=== PATIENT | female | born 1980 | race Caucasian/White ===

== ENCOUNTER 2017-12-15 22:02 | Emergency (ER) | payer MEDICAID ==
[~2017-12-15] VITALS: Ht 160 cm; Wt 83.0 kg
[~2017-12-15 22:02] MED LIST: BACI28OI9 TP; CYCL-1 PO; ESCI10TA45 PO; FLO0.4C PO; HYDR-569 PO; IBUP-1986 PO; MECL12.5 PO; METF500T PO; ONDA4TAB12 PO; ONDA4TAB6 PO; ONDA8TAB6 PO; PROM25TA14 PO
[2017-12-15 23:00] LABS: URINE HCG NEGATIVE (NEG)
[2017-12-15 23:16] LABS: ALANINE AMINOTRANSFERASE 19 U/L (12-78); ALBUMIN 3.7 G/DL (3.4-5.0); ALKALINE PHOSPHATASE 94 IU/L (46-116); ANION GAP 10 (8-16); ASPARTATE AMINO TRANSFERASE 14 U/L (10-37); BILIRUBIN,TOTAL 0.2 MG/DL (0.1-1.0); BLOOD UREA NITROGEN 15 MG/DL (7-18); BUN/CREATININE RATIO 15.2 (6.6-38.0); CHLORIDE 104 MMOL/L (99-107); CREATININE 0.99 MG/DL (0.40-0.90); GLUCOSE 215 MG/DL (70-104); POTASSIUM 3.2 MMOL/L (3.5-5.1); SODIUM 139 MMOL/L (135-145); TOTAL CARBON DIOXIDE 25.1 MMOL/L (24-32); TOTAL PROTEIN 7.3 G/DL (6.4-8.2); eGFR 63 ML/MIN
[2017-12-15 23:19] LABS: CLARITY,URINE CLEAR (Clear); COLOR,URINE YELLOW (Yellow); GLUCOSE, URINE NEGATIVE (Neg); KETONES,URINE NEGATIVE (Neg); LEUKOCYTE ESTERASE ,URINE NEGATIVE (Neg); NITRITES, URINE NEGATIVE (Neg); OCCULT BLOOD,URINE LARGE (Neg); PH,URINE 6.5 (4.8-8.0); PROTEIN,URINE TRACE mg/dl (Neg); UROBILINOGEN,URINE 0.2 E.U/dL (0.2-1.0)
[2017-12-15 23:23] LABS: UA COLLECTION TYPE CLN CATCH MIDSTREAM
[2017-12-15 23:23] LABS: BASOPHILS % (AUTO) 0.3 % (0-1); EOSINOPHILS # (AUTO) 0.2 X10'3 (0-0.9); EOSINOPHILS % (AUTO) 2.2 % (0-6); HEMATOCRIT 37.5 % (35.0-45.0); HEMOGLOBIN 12.9 g/dl (12.0-16.0); LYMPHOCYTES # (AUTO) 3.1 X10'3 (1.1-4.8); MEAN CORPUSCULAR HEMOGLOBIN 28.8 PG (27.0-31.0); MEAN CORPUSCULAR HGB CONC 34.3 % (33.0-36.5); MEAN CORPUSCULAR VOLUME 83.9 FL (78-98); MEAN PLATELET VOLUME 7.1 FL (7.4-10.4); MONOCYTES # (AUTO) 0.8 X10'3 (0-0.9); MONOCYTES % (AUTO) 8.6 % (2-12); NEUTROPHILS # (AUTO) 5.5 X10'3 (1.8-7.7); NEUTROPHILS % (AUTO) 56.9 % (42-75); PLATELET COUNT 448 X10'3 (140-440); RED BLOOD COUNT 4.47 X10'6 (4.20-5.60); RED CELL DISTRIBUTION WIDTH 12.7 % (11.5-14.5); WHITE BLOOD COUNT 9.7 X10'3 (4.5-11.0)
[2017-12-15] MEDS ORDERED: normal saline 1000ml 1,000 ML IV ONE (23:25)
[2017-12-15] MEDS ORDERED: ondansetron/PF 4mg/2ml inj IV ONE (23:25)
[2017-12-15] MEDS ORDERED: dicyclomine 10mg/ml 2ml ampule IM ONE (23:30)
[2017-12-15 23:52] LABS: BACTERIA,URINE 2+ /HPF (Neg)
[2017-12-15 23:54] LABS: SQUAMOUS EPITHELIAL CELL,UR FEW /LPF (FEW); WBC,URINE NONE SEEN /HPF (0-4)
[2017-12-16 00:06] LABS: CAL OXALATE CRYSTALS 2+ /HPF (NEGATIVE)
[2017-12-16] MEDS ORDERED: ketorolac trometh. 30mg/ml inj. IV ONE (00:15)
[2017-12-16] MEDS ORDERED: ONDA8TAB9 PO (01:32)
[2017-12-16 01:48] VITALS: BP 116/75
== END 2017-12-16 01:51 | disposition home or self-care (01) ==
LOC: ER 22:02
DX: E11.65 Type 2 diabetes mellitus with hyperglycemia (principal); E87.6 Hypokalemia; R10.30 Lower abdominal pain, unspecified; R11.2 Nausea with vomiting, unspecified; R19.7 Diarrhea, unspecified; E78.00 Pure hypercholesterolemia, unspecified; G43.909 Migraine, unspecified, not intractable, without status migrainosus; M19.90 Unspecified osteoarthritis, unspecified site; Z88.2 Allergy status to sulfonamides; Z88.5 Allergy status to narcotic agent; Z79.899 Other long term (current) drug therapy; Z87.891 Personal history of nicotine dependence; Z56.0 Unemployment, unspecified
CPT/HCPCS: 36415; 80053; 81001; 81025; 85025; 85610; 87088; 96361; 96372; 96374; 96375; 99284; J0500; J1885; J2405; J7030

== ENCOUNTER 2017-12-31 08:00 | Emergency (ER) | payer MEDICAID ==
[~2017-12-31] VITALS: Ht 160 cm; Wt 82.5 kg
[~2017-12-31 08:00] MED LIST changes: +ONDA8TAB9 PO
[2017-12-31 08:03] VITALS: BP 115/78
[2017-12-31] MEDS ORDERED: DOXY100C43 PO (08:33)
== END 2017-12-31 08:38 | disposition home or self-care (01) ==
LOC: ER 08:00
DX: L03.114 Cellulitis of left upper limb (principal); E78.00 Pure hypercholesterolemia, unspecified; G43.909 Migraine, unspecified, not intractable, without status migrainosus; E11.9 Type 2 diabetes mellitus without complications; M19.90 Unspecified osteoarthritis, unspecified site; Z88.2 Allergy status to sulfonamides; Z88.5 Allergy status to narcotic agent; Z88.8 Allergy status to other drugs, medicaments and biological substances; Z79.84 Long term (current) use of oral hypoglycemic drugs; Z79.899 Other long term (current) drug therapy; Z56.0 Unemployment, unspecified
CPT/HCPCS: 99283

== ENCOUNTER 2018-01-20 19:37 | Emergency (ER) | payer MEDICAID ==
[~2018-01-20] VITALS: Ht 160 cm; Wt 81.8 kg
[~2018-01-20 19:37] MED LIST changes: +HYDR-3686 PO
[2018-01-20] MEDS ORDERED: methylPREDNISolone sod succ 125mg/2ml vial IV ONE (19:55)
[2018-01-20] MEDS ORDERED: LORazepam 2 mg/ml vial IV ONE (19:55)
[2018-01-20 20:52] VITALS: BP 109/72
== END 2018-01-20 21:33 | disposition home or self-care (01) ==
LOC: ER 19:38
DX: F41.9 Anxiety disorder, unspecified (principal); R13.10 Dysphagia, unspecified; R06.00 Dyspnea, unspecified; G43.909 Migraine, unspecified, not intractable, without status migrainosus; E78.00 Pure hypercholesterolemia, unspecified; E11.9 Type 2 diabetes mellitus without complications; M19.90 Unspecified osteoarthritis, unspecified site; F32.9 Major depressive disorder, single episode, unspecified; Z87.891 Personal history of nicotine dependence; Z56.0 Unemployment, unspecified; Z88.2 Allergy status to sulfonamides; Z88.5 Allergy status to narcotic agent; Z88.8 Allergy status to other drugs, medicaments and biological substances; Z79.899 Other long term (current) drug therapy
CPT/HCPCS: 82948; 96374; 96375; 99284; J2060; J2930

== ENCOUNTER 2018-08-01 12:45 | Emergency (ER) | payer MEDICAID ==
[~2018-08-01] VITALS: Ht 160 cm; Wt 83.2 kg
[~2018-08-01 12:45] MED LIST changes: +HYDR-4383 PO; -HYDR-569 PO
[2018-08-01 13:16] VITALS: BP 116/72
[2018-08-01 13:42] LABS: CLARITY,URINE SLIGHTLY CLOUDY (Clear); COLOR,URINE YELLOW (Yellow); GLUCOSE, URINE NEGATIVE (Neg); KETONES,URINE TRACE mg/dl (Neg); LEUKOCYTE ESTERASE ,URINE NEGATIVE (Neg); NITRITES, URINE NEGATIVE (Neg); OCCULT BLOOD,URINE SMALL (Neg); PH,URINE 5.5 (4.8-8.0); PROTEIN,URINE NEGATIVE (Neg); UROBILINOGEN,URINE 0.2 E.U/dL (0.2-1.0)
[2018-08-01 13:46] LABS: UA COLLECTION TYPE CLN CATCH MIDSTREAM
[2018-08-01 13:49] LABS: URINE HCG NEGATIVE (NEG)
[2018-08-01 13:51] LABS: BACTERIA,URINE 2+ /HPF (Neg); MUCUS STRANDS MANY /LPF (Neg); RBC,URINE 0-2 /HPF (0-2); SQUAMOUS EPITHELIAL CELL,UR MANY /LPF (FEW); WBC,URINE 0-4 /HPF (0-4)
[2018-08-01 13:52] LABS: BASOPHILS % (AUTO) 0.4 % (0-1); EOSINOPHILS # (AUTO) 0.2 X10'3 (0-0.9); HEMATOCRIT 40.9 % (35.0-45.0); HEMOGLOBIN 13.9 g/dl (12.0-16.0); LYMPHOCYTES # (AUTO) 1.8 X10'3 (1.1-4.8); LYMPHOCYTES % (AUTO) 24.2 % (21-51); MEAN CORPUSCULAR HEMOGLOBIN 28.5 PG (27.0-31.0); MEAN CORPUSCULAR HGB CONC 33.9 % (33.0-36.5); MEAN PLATELET VOLUME 7.1 FL (7.4-10.4); MONOCYTES # (AUTO) 0.6 X10'3 (0-0.9); MONOCYTES % (AUTO) 8.7 % (2-12); NEUTROPHILS # (AUTO) 4.6 X10'3 (1.8-7.7); NEUTROPHILS % (AUTO) 63.7 % (42-75); PLATELET COUNT 399 X10'3 (140-440); RED BLOOD COUNT 4.87 X10'6 (4.20-5.60); RED CELL DISTRIBUTION WIDTH 13.4 % (11.5-14.5); WHITE BLOOD COUNT 7.2 X10'3 (4.5-11.0)
[2018-08-01 14:14] LABS: ALANINE AMINOTRANSFERASE 26 U/L (12-78); ALBUMIN 3.5 G/DL (3.4-5.0); ALBUMIN/GLOBULIN RATIO 0.8 (1.1-1.5); ALKALINE PHOSPHATASE 88 IU/L (46-116); ANION GAP 9 (8-16); ASPARTATE AMINO TRANSFERASE 20 U/L (10-37); BILIRUBIN,TOTAL 0.6 MG/DL (0.1-1.0); BLOOD UREA NITROGEN 13 MG/DL (7-18); BUN/CREATININE RATIO 16.3 (6.6-38.0); CALCIUM 8.8 MG/DL (8.5-10.1); CHLORIDE 101 MMOL/L (99-107); GLUCOSE 153 MG/DL (70-104); LIPASE 67 U/L (73-393); POTASSIUM 3.4 MMOL/L (3.5-5.1); SODIUM 136 MMOL/L (135-145); TOTAL CARBON DIOXIDE 25.7 MMOL/L (24-32); TOTAL PROTEIN 7.7 G/DL (6.4-8.2); eGFR 80 ML/MIN
[2018-08-01] MEDS ORDERED: normal saline 1000ML IV soln IVB ONE (15:10)
[2018-08-01] MEDS ORDERED: ketorolac trometh. 30mg/ml inj. IV ONE (15:10)
[2018-08-01] MEDS ORDERED: ondansetron/PF 4mg/2ml inj IV ONE (15:10)
== END 2018-08-01 16:21 | disposition home or self-care (01) ==
LOC: ER 12:46
DX: E86.0 Dehydration (principal); R19.7 Diarrhea, unspecified; R11.10 Vomiting, unspecified; R05 Cough; G43.909 Migraine, unspecified, not intractable, without status migrainosus; E78.00 Pure hypercholesterolemia, unspecified; E11.9 Type 2 diabetes mellitus without complications; M19.90 Unspecified osteoarthritis, unspecified site; Z87.442 Personal history of urinary calculi; Z98.890 Other specified postprocedural states; Z56.0 Unemployment, unspecified; Z88.2 Allergy status to sulfonamides; Z88.5 Allergy status to narcotic agent; Z79.899 Other long term (current) drug therapy; Z88.6 Allergy status to analgesic agent
CPT/HCPCS: 36415; 71045; 80053; 81001; 81025; 82948; 83690; 85025; 96374; 96375; 99284; J1885; J2405; J7030; 96361

== ENCOUNTER 2018-10-12 13:07 | Emergency (ER) | payer MEDICAID ==
[~2018-10-12] VITALS: Ht 160 cm; Wt 87.0 kg
[2018-10-12] MEDS ORDERED: proCHLORperazine 10 MG/2 ml inj IV ONE (13:15)
[2018-10-12] MEDS ORDERED: fentaNYL/PF 50MCG/1 ML 2ML syringe IV ONE (13:15)
[2018-10-12] MEDS ORDERED: ketorolac trometh. 30mg/ml inj. IV ONE (13:15)
[2018-10-12 13:39] LABS: BASOPHILS % (AUTO) 0.5 % (0-1); EOSINOPHILS # (AUTO) 0.1 X10'3 (0-0.9); EOSINOPHILS % (AUTO) 1.5 % (0-6); HEMATOCRIT 38.9 % (35.0-45.0); HEMOGLOBIN 13.1 g/dl (12.0-16.0); LYMPHOCYTES % (AUTO) 23.5 % (21-51); MEAN CORPUSCULAR HEMOGLOBIN 28.3 PG (27.0-31.0); MEAN CORPUSCULAR HGB CONC 33.6 g/dL (33.0-36.5); MEAN PLATELET VOLUME 7.1 FL (7.4-10.4); MONOCYTES # (AUTO) 0.9 X10'3 (0-0.9); MONOCYTES % (AUTO) 10.5 % (2-12); NEUTROPHILS # (AUTO) 5.4 X10'3 (1.8-7.7); PLATELET COUNT 375 X10'3 (140-440); RED BLOOD COUNT 4.63 X10'6 (4.20-5.60); RED CELL DISTRIBUTION WIDTH 13.2 % (11.5-14.5); WHITE BLOOD COUNT 8.5 X10'3 (4.5-11.0)
[2018-10-12 13:52] LABS: ALANINE AMINOTRANSFERASE 20 U/L (12-78); ALBUMIN 3.2 G/DL (3.4-5.0); ALBUMIN/GLOBULIN RATIO 0.8 (1.1-1.5); ALKALINE PHOSPHATASE 79 IU/L (46-116); ANION GAP 9 (8-16); ASPARTATE AMINO TRANSFERASE 15 U/L (10-37); BILIRUBIN,TOTAL 0.3 MG/DL (0.1-1.0); BLOOD UREA NITROGEN 17 MG/DL (7-18); BUN/CREATININE RATIO 19.3 (6.6-38.0); CALCIUM 8.7 MG/DL (8.5-10.1); CHLORIDE 104 MMOL/L (99-107); CREATININE 0.88 MG/DL (0.40-0.90); GLUCOSE 229 MG/DL (70-104); LIPASE 79 U/L (73-393); SODIUM 136 MMOL/L (135-145); TOTAL CARBON DIOXIDE 22.8 MMOL/L (24-32); TOTAL PROTEIN 7.1 G/DL (6.4-8.2); eGFR 72 ML/MIN
[2018-10-12] MEDS ORDERED: normal saline 1000ml 1,000 ML IV ONE (14:05)
--- NOTE | 2018-10-12 14:22 | NUR ---
Patient ambulated to restroom with steady gait, urine sample collected and sent to lab.
[2018-10-12 14:23] LABS: CLARITY,URINE TURBID (Clear); COLOR,URINE YELLOW (Yellow); GLUCOSE, URINE 500 mg/dl (Neg); KETONES,URINE TRACE mg/dl (Neg); LEUKOCYTE ESTERASE ,URINE NEGATIVE (Neg); NITRITES, URINE NEGATIVE (Neg); OCCULT BLOOD,URINE LARGE (Neg); PROTEIN,URINE 30 mg/dl (Neg); UROBILINOGEN,URINE 0.2 E.U/dL (0.2-1.0)
--- NOTE | 2018-10-12 14:23 | NUR ---
Patient states she feels anxious. evaluator transfer students Ines teached grounding exercises with patient. Patient demostrated proper technique, reports exercises helping.
[2018-10-12 14:24] LABS: UA COLLECTION TYPE CLN CATCH MIDSTREAM
[2018-10-12 14:29] LABS: MUCUS STRANDS MANY /LPF (Neg); SQUAMOUS EPITHELIAL CELL,UR MANY /LPF (FEW)
[2018-10-12 14:31] LABS: BACTERIA,URINE 2+ /HPF (Neg); RBC,URINE TNTC /HPF (0-2); URINE HCG NEGATIVE (NEG); WBC,URINE 0-4 /HPF (0-4)
[2018-10-12] MEDS ORDERED: HYDR-3965 PO (15:15)
[2018-10-12 15:28] VITALS: BP 120/75
== END 2018-10-12 15:30 | disposition home or self-care (01) ==
LOC: ER 13:08
DX: N20.0 Calculus of kidney (principal); G43.909 Migraine, unspecified, not intractable, without status migrainosus; E78.00 Pure hypercholesterolemia, unspecified; E11.9 Type 2 diabetes mellitus without complications; M19.90 Unspecified osteoarthritis, unspecified site; Z88.2 Allergy status to sulfonamides; Z88.5 Allergy status to narcotic agent; Z88.6 Allergy status to analgesic agent; Z79.899 Other long term (current) drug therapy; Z98.890 Other specified postprocedural states; Z56.0 Unemployment, unspecified
CPT/HCPCS: 36415; 71045; 74176; 80053; 81001; 81025; 83690; 85025; 96374; 96375; 99284; J0780; J1885; J3010; J7030

== ENCOUNTER → 2019-02-05 | Emergency (ER) | payer MEDICAID ==
[~2019-02-05] VITALS: Ht 160 cm; Wt 82.7 kg
[~2019-02-05] MED LIST changes: +ondansetron 4mg rapidly disintigrating tab PO ONE
[2019-02-05 18:44] LABS: BASOPHILS % (AUTO) 0.4 % (0-1); EOSINOPHILS # (AUTO) 0.3 X10'3 (0-0.9); HEMATOCRIT 37.3 % (35.0-45.0); HEMOGLOBIN 12.8 g/dl (12.0-16.0); LYMPHOCYTES # (AUTO) 2.4 X10'3 (1.1-4.8); LYMPHOCYTES % (AUTO) 29.9 % (21-51); MEAN CORPUSCULAR HEMOGLOBIN 28.8 PG (27.0-31.0); MEAN CORPUSCULAR HGB CONC 34.3 g/dL (33.0-36.5); MONOCYTES # (AUTO) 0.7 X10'3 (0-0.9); MONOCYTES % (AUTO) 8.4 % (2-12); NEUTROPHILS # (AUTO) 4.7 X10'3 (1.8-7.7); NEUTROPHILS % (AUTO) 57.3 % (42-75); PLATELET COUNT 419 X10'3 (140-440); RED BLOOD COUNT 4.44 X10'6 (4.20-5.60); WHITE BLOOD COUNT 8.1 X10'3 (4.5-11.0)
[2019-02-05 18:57] LABS: ALANINE AMINOTRANSFERASE 24 U/L (12-78); ALBUMIN 3.2 G/DL (3.4-5.0); ALBUMIN/GLOBULIN RATIO 0.8 (1.1-1.5); ALKALINE PHOSPHATASE 75 IU/L (46-116); ANION GAP 7 (8-16); ASPARTATE AMINO TRANSFERASE 16 U/L (10-37); BILIRUBIN,TOTAL 0.3 MG/DL (0.1-1.0); BLOOD UREA NITROGEN 13 MG/DL (7-18); BUN/CREATININE RATIO 14.8 (6.6-38.0); CALCIUM 8.8 MG/DL (8.5-10.1); CHLORIDE 105 MMOL/L (99-107); CREATININE 0.88 MG/DL (0.40-0.90); GLUCOSE 134 MG/DL (70-104); POTASSIUM 3.7 MMOL/L (3.5-5.1); SODIUM 139 MMOL/L (135-145); TOTAL CARBON DIOXIDE 26.7 MMOL/L (24-32); eGFR 72 ML/MIN
[2019-02-05 19:19] LABS: CLARITY,URINE CLEAR (Clear); COLOR,URINE YELLOW (Yellow); GLUCOSE, URINE NEGATIVE (Neg); KETONES,URINE NEGATIVE (Neg); LEUKOCYTE ESTERASE ,URINE NEGATIVE (Neg); NITRITES, URINE NEGATIVE (Neg); OCCULT BLOOD,URINE SMALL (Neg); PH,URINE 5.5 (4.8-8.0); PROTEIN,URINE NEGATIVE (Neg); UROBILINOGEN,URINE 0.2 E.U/dL (0.2-1.0)
[2019-02-05 19:24] LABS: UA COLLECTION TYPE CLN CATCH MIDSTREAM
[2019-02-05 19:25] LABS: BACTERIA,URINE FEW /HPF (Neg); RBC,URINE 0-2 /HPF (0-2); SQUAMOUS EPITHELIAL CELL,UR FEW /LPF (FEW); WBC,URINE 0-4 /HPF (0-4)
[2019-02-05 19:56] VITALS: BP 120/74
== END | disposition home or self-care (01) ==
LOC: ER 17:16
DX: B34.9 Viral infection, unspecified (principal); R42 Dizziness and giddiness; G43.909 Migraine, unspecified, not intractable, without status migrainosus; E78.00 Pure hypercholesterolemia, unspecified; E11.9 Type 2 diabetes mellitus without complications; M19.90 Unspecified osteoarthritis, unspecified site; F41.9 Anxiety disorder, unspecified; F32.9 Major depressive disorder, single episode, unspecified; Z87.442 Personal history of urinary calculi; Z56.0 Unemployment, unspecified
CPT/HCPCS: 36415; 80053; 81001; 83605; 85025; 93005; 99284; J2405

== ENCOUNTER 2019-07-15 14:43 | Emergency (ER) | payer OTHER, MEDICAID ==
[~2019-07-15] VITALS: Ht 160 cm; Wt 83.0 kg
[~2019-07-15 14:43] MED LIST changes: -ondansetron 4mg rapidly disintigrating tab PO ONE
[2019-07-15] MEDS ORDERED: orphenadrine citrate 60mg/2ml inj. IM ONE (16:15)
[2019-07-15] MEDS ORDERED: ketorolac tromethamine 15mg/ml inj. IM ONE (16:15)
--- NOTE | 2019-07-15 16:30 | NUR ---
pt to ct
[2019-07-15] MEDS ORDERED: ondansetron 4mg rapidly disintigrating tab PO ONE (17:05)
--- NOTE | 2019-07-15 17:30 | NUR ---
C-COLLAR REMOVED PER PA MICHELLE CLEARANCE AND CT NEGATIVE RESULTS.
[2019-07-15] MEDS ORDERED: METH-360 PO (17:52)
[2019-07-15] MEDS ORDERED: NAPR-56 PO (17:52)
[2019-07-15 18:03] VITALS: BP 118/79
== END 2019-07-15 18:05 | disposition home or self-care (01) ==
LOC: ER 14:43
DX: M54.2 Cervicalgia (principal); M54.5 Low back pain; M54.9 Dorsalgia, unspecified; G43.909 Migraine, unspecified, not intractable, without status migrainosus; E78.00 Pure hypercholesterolemia, unspecified; E11.9 Type 2 diabetes mellitus without complications; G89.29 Other chronic pain; M19.90 Unspecified osteoarthritis, unspecified site; F41.9 Anxiety disorder, unspecified; F32.9 Major depressive disorder, single episode, unspecified; F10.99 Alcohol use, unspecified with unspecified alcohol-induced disorder; Z87.442 Personal history of urinary calculi; Z56.0 Unemployment, unspecified; Z88.2 Allergy status to sulfonamides; Z88.5 Allergy status to narcotic agent; Z88.8 Allergy status to other drugs, medicaments and biological substances; Z79.84 Long term (current) use of oral hypoglycemic drugs; Z79.899 Other long term (current) drug therapy; V98.8XXA Other specified transport accidents, initial encounter; Y93.89 Activity, other specified; Y92.89 Other specified places as the place of occurrence of the external cause; Y99.8 Other external cause status; Y90.9 Presence of alcohol in blood, level not specified
CPT/HCPCS: 72125; 96372; 99284; J1885; J2360

== ENCOUNTER 2025-02-23 13:22 | Outpatient (CLI) | payer MEDICAID ==
[~2025-02-23 13:22] MED LIST changes: -FLO0.4C PO; +METH-360 PO; +ONDA-243 PO; -ONDA4TAB12 PO; +TAMS-55 PO
--- NOTE | 2025-02-23 14:16 | RADIOLOGY REPORT ---
EXAM: MR MRI LOWER EXTREMITY LEFT knee INDICATION: PAIN IN LEFT KNEE TECHNIQUE: Multiplanar and multisequence MR imaging of the left ankle was performed in the absence of gadolinium contrast. COMPARISON: None FINDINGS: [ the medial and lateral menisci are intact The cruciate and collateral ligaments are intact The quadriceps and patellar tendons are intact No significant joint effusion The hyaline cartilage surfaces covering the patellofemoral joint are smooth IMPRESSION: 1. No meniscal ligamentous injury. 2. No osteochondral or musculoskeletal injury.
== END 2025-02-23 23:59 | disposition home or self-care (01) ==
LOC: MRI02 13:22
PROVIDERS: ATTEND Physician Assistant Surgical
DX: M25.562 Pain in left knee (principal); D17.24 Benign lipomatous neoplasm of skin and subcutaneous tissue of left leg
CPT/HCPCS: 73721

== ENCOUNTER 2025-03-18 08:49 | Outpatient (CLI) | payer MEDICAID ==
--- NOTE | 2025-03-18 12:42 | RADIOLOGY REPORT ---
CLINICAL HISTORY: Left knee lipoma. Palpable abnormality at the posterior aspect of the left knee. COMPARISON: MR MRI LOWER EXTREMITY LEFT on DOS: 02/23/25 TECHNIQUE: Multisequence multiplanar MRI images of the left knee were obtained prior to and after the uneventful administration of 15 mL Clariscan contrast. FINDINGS: Cruciate ligaments: ACL and PCL are intact. Extensor mechanism: Quadriceps mechanism and patellar tendon are intact. Collateral ligaments: Medial and lateral collateral ligaments are intact and otherwise unremarkable. Menisci: No significant degeneration. No evidence of meniscal tear. Cartilage: Mild chondral thinning in the medial and lateral compartments. No focal chondral defect. Bones: No acute fracture or focal marrow contusion. Joint fluid: No significant joint effusion. Other: A marker was placed at the location of the patient's palpable abnormality. No discrete mass identified in the area of palpable abnormality. The subcutaneous fat adjacent to the marker is not well delineated from the adjacent subcutaneous fat to suggest a discrete lipoma in this location. There i s no abnormal postcontrast enhancement. IMPRESSION: 1. No discrete mass identified in the area of palpable abnormality. The subcutaneous fat near the location of the palpable marker is not well delineated from the adjacent subcutaneous fat to suggest a discrete lipoma. No abnormal postcontrast enhancement near the area of palpable abnormality. 2. No evidence of internal derangement.
[2025-03-18] MEDS ORDERED: GADOTERATE MEGLUMINE 7.5 MMOL/15 ML VIAL IV ONE (13:04)
== END 2025-03-18 23:59 | disposition home or self-care (01) ==
LOC: MRI 08:49
PROVIDERS: ATTEND Orthopaedic Surgery
DX: D17.24 Benign lipomatous neoplasm of skin and subcutaneous tissue of left leg (principal); M25.562 Pain in left knee
CPT/HCPCS: 73723; A9575

== ENCOUNTER 2025-05-22 14:10 | Emergency (ER) | payer MEDICAID ==
[~2025-05-22] VITALS: Ht 162.6 cm; Wt 77.0 kg
[2025-05-22 14:14] VITALS: TEMP 98.4
[2025-05-22 15:40] LABS: INFLUENZA TYPE A ANTIGEN RAPID NEGATIVE (Negative); INFLUENZA TYPE B ANTIGEN RAPID NEGATIVE (Negative)
--- NOTE | 2025-05-22 15:41 | Physician Documentation ---
History of Present Illness ~ Chief Complaint: Hypertension Stated Complaint: JAW/NECK PAIN BLOOD PRESSURE Time Seen by MD: 14:21 Primary Medical Doctor: dr. charmaine tan at [facility] Patient is a 44-year-old female that presents to the emergency department for evaluation of hypertension per patient. Patient reports she took her blood pressure at home twice today the 1st time he was in the 140s to 2nd time was in the 130s. Patient reports she has a primary care provider that she saw last week that did lab work on her and reported that she had slightly elevated platelets around 450. Patient reports that she also has swollen lymph nodes and a headache. Patient reports he has a history of migraines. Patient denies taking anything for her headache other than Tylenol and ibuprofen she last took Tylenol and ibuprofen approximately 1 hour ago. Patient appears well in triage today. Medication Reconciliation Allergies: Coded Allergies: Sulfa (Sulfonamide Antibiotics) (Unverified Allergy, Unknown, 07/15/19) codeine (Unverified Allergy, Unknown, 07/15/19) hydromorphone (Unverified Allergy, Unknown, 07/15/19) morphine (Unverified Allergy, Unknown, 07/15/19) tamsulosin (Verified Allergy, Unknown, 07/15/19) Scheduled Bacitracin/Pramoxine/Aloe Vera (Bacitracin Plus Ointment), 28 GM TP TID Escitalopram Oxalate* (Lexapro*), 10 MG PO DAILY, (Reported) Hydrocodone/Acetaminophen ([place] 5-325 Tablet), 1 TAB PO Q12H PRN Hydroxyzine Hcl (Atarax), 25 MG PO nightly Ibuprofen (Ibuprofen), 1 TABLET PO TID Ibuprofen (Ibuprofen), 1 TAB PO Q8H Metformin Hcl* (Glucophage*), 1,000 MG PO BID, (Reported) Methocarbamol (Robaxin-750), 1 TAB PO Q12H Ondansetron Hcl (Zofran), 1 TAB PO Q8H Ondansetron Hcl (Zofran), 1 TAB PO Q8H Tamsulosin Hcl* (Flomax*), 0.4 MG PO DAILY Scheduled PRN Cyclobenzaprine* (Cyclobenzaprine*), 1 TABLET PO Q8H PRN for muscle spasms Meclizine Hcl* (Antivert*), 25 MG PO Q6H PRN for dizziness/vertigo ONDANSETRON ODT 4mg tablet (Ondansetron Odt), 1 TABLET PO Q6H PRN for nausea/vomiting Ondansetron (Zofran Odt), 4 MG PO QID PRN for nausea/vomiting Ondansetron Hcl (Zofran), 1 TABLET PO Q6H PRN for nausea/vomiting Ondansetron Hcl (Zofran), 8 MG PO Q8HPRN PRN for nausea/vomiting Promethazine HCl (Promethazine HCl), 25 MG PO Q6H PRN for nausea/vomiting Past Medical History Past Medical History: Migraine, High Cholesterol, Hernia, Kidney Stones, Diabetes, Arthritis, Anxiety, Depression Past Surgical History: noncontributory Other Past Surgical History: Hernia repair Other Past Family History: NONCONTRIBUTORY Alcohol Use: Occasionally Drug Use: none Lives with: Family Lives In: Home Occupation: unemployed Review of Systems ROS As stated above in the HPI, otherwise all systems are reviewed and negative. Physical Exam Vital Signs: Temperature: 98.4, Source: Oral, Heart Rate: 94, Respiratory Rate: 18, BP: 139/87, Pulse Oximetry: 98, Weight: 77.000 Oxygen Flow Rate: 0 Physical Exam VITALS: Reviewed and as above. GENERAL: Alert, no apparent distress. HEENT: Normocephalic, atraumatic, PERRL, EOMI, dry mucosa, no erythema, mild lymphadenopathy noted bilaterally. RESPIRATORY: Lungs clear, normal breath sounds, no respiratory distress. CHEST: No accessory muscle use, no retractions CV: Regular rate, rhythm, no edema, no murmur, No: JVD GI: Soft, non-tender, bowels sounds present, no rebound, guarding, or rigidity BACK: No CVA tenderness, or swelling MUSCULOSKELETAL No deformities, no edema SKIN: Warm and dry, no rash NEURO: Oriented x4, No motor or sensory deficit PSYCH: Normal mood and affect, no agitation Progress Results/Orders Results/Orders Orders - FRANCES WOOD Covid19 Binax Poc Result Entry (05/22/25 14:26) Completed Orders - FRANCES WOOD Influenza Type A&B Rapid Test (05/22/25 14:26) Ua W/Microscopic, Cult If Ind (05/22/25 16:02) Vital Signs 05/22/25 05/22/25 14:14 16:19 Temp 98.4 Pulse 94 78 Resp 18 18 B/P (MAP) 139/87 131/90 (104) Pulse Ox 98 O2 Flow Rate 0 0 Laboratory Tests Test 05/22/25 15:05 05/22/25 16:02 Influenza Type A Antigen Negative Influenza Type B Antigen Negative SARS-CoV-2 Antigen (Rapid) Negative Urine Specimen Description Cln catch midstream Urine Color Yellow Urine Clarity Slightly cloudy Urine pH 6.0 Urine Specific [place] 1.025 Urine Protein Negative Urine Glucose (UA) Negative Urine Ketones Negative Urine Occult Blood Negative Urine Nitrite Negative Urine Bilirubin Negative Urine Urobilinogen 0.2 Urine Leukocyte Esterase Negative Urine RBC 3-10 Urine WBC 0-4 Urine Squamous Epithelial Cells Many Urine Transitional Epithelial Cells Moderate Urine Renal Cells Few Urine Bacteria 2+ Urine Mucus Few Urine Culture Indicated Not ind Volume Urine Centrifuged 10 ml Urine Comment Medical Decision Making Additional information obtaine: other Findings Medical Decision-Making (MDM): The patient is a 44-year-old female presenting for evaluation of self-reported hypertension, headache, and swollen lymph nodes. On assessment, she is well-a ppearing, afebrile, and vital signs are within normal limits, including systolic blood pressure in the 130s. She is able to flex her neck fully without pain and does not demonstrate rhinorrhea, congestion, cough, fever, or chills. Current symptoms and exam findings are most consistent with probable viral pharyngitis. There is no evidence of bacterial pharyngitis, peritonsillar abs cess, or other acute complications. Lymphadenopathy is present but without concerning features such as B symptoms, and will be monitored in the outpatient setting. No concern for hypertensive emergency or urgency at this time. Blood pressure is mildly elevated but not in a range associated with acute target organ damage, and the patient is asymptomatic. Per [employer] and [place] [employer] guidelines, no ED intervention or medication adjustment is indicated for asymptomatic elevated blood pressure; outpatient management and follow-up with primary care are appropriate. Headache is consistent with her history of migraines and is currently managed with acetaminophen and ibuprofen. No red flag features are present to warrant emergent neuroimaging or further acute intervention. Disposition: The patient is stable for discharge. She will follow up with her primary care provider for ongoing evaluation of hypertension, lymphadenopathy, and any further workup as indicated. Return precautions discussed for new or worsening symptoms, including fever, severe pain, neurologic changes, or other concerning developments. Summary: Probable viral pharyngitis, no concern for emergent hypertension, and outpatient follow-up arranged. Differential Dx:Considerations: Include CHF, Include HTN, essential, Include HTN, accelerated, Include HTN, malignant, Include HTN, encephalopathy, Include medical noncompliance, Include medication withdrawal, Include pulmonary edema, I nclude renal failure, Include -induced, Include other Departure Disposition: 01 HOME / SELF CARE / HOMELESS Impression: Primary Impression: Benign hypertension Additional Impression: Viral pharyngitis Condition: Stable Discharge Instructions: Pharyngitis, [id number] Additional Instructions: You came to the emergency department for high blood pressure and headache. Your blood pressure was in the 130s here, which is not dangerous. You also have a history of migraines, slightly high platelets, swollen lymph nodes, and headache. After checking you, the most likely cause of your symptoms is viral pharyngitis (a sore throat caused by a virus). There is no sign of a serious infection or emergency. What to do at home: You can take acetaminophen (Tylenol) or ibuprofen for headache or throat pain, as you have been doing. Do not take more than the recommended dose on the package. Drink plenty of fluids and rest. You do not need antibiotics, as this is likely caused by a virus. Blood pressure: Keep checking your blood pressure at home as you have been. Write down your numbers. There is no need to start new blood pressure medicine right now. Follow up with your primary care provider to talk about your blood pressure and any other concerns. Swollen lymph nodes and platelets: Swollen lymph nodes are common with viral infections and usually go away on their own. Your platelets are slightly high, but this is not dangerous right now. Your primary care provider will follow up on this. When to get help: Call your doctor or return to the emergency department if you have: Fever over 101F (38.3C) Trouble breathing or swallowing Severe headache that does not get better Chest pain, weakness, or numbness Swelling that gets much worse or lasts more than 2 weeks Any new or worrying symptoms Follow-up: Make an appointment with your primary care provider within the next week to review your blood pressure, headaches, and lab results. If you have any questions about your care, please call your doctor or the emergency department. Thank you for trusting us with your care. Take care and get well soon! Referrals: NO PRIMARY CARE PROVIDER (PCP) Education Educated: Patient Educated regarding: diagnosis, treatment, need for follow up Signature Scribe Signature: A Attestation: Scribed for Frances Wood by LAURA Hobson . 05/22/25 16:27 FRANCES WOOD May 22, 2025 15:41
[2025-05-22 16:10] LABS: LEUKOCYTE ESTERASE ,URINE NEGATIVE (Neg); NITRITES, URINE NEGATIVE (Neg); OCCULT BLOOD,URINE NEGATIVE (Neg)
[2025-05-22 16:17] LABS: UA COLLECTION TYPE CLN CATCH MIDSTREAM
[2025-05-22 16:18] LABS: MUCUS STRANDS FEW /LPF (Neg); RENAL CELLS, URINE FEW /HPF; SQUAMOUS EPITHELIAL CELL,UR MANY /LPF (FEW)
[2025-05-22 16:19] VITALS: BP 131/90; PULSE 78; RESP 18; O2SAT 98
== END 2025-05-22 16:39 | disposition home or self-care (01) ==
LOC: ER 14:11
DX: J02.8 Acute pharyngitis due to other specified organisms (principal); B97.89 Other viral agents as the cause of diseases classified elsewhere; I10 Essential (primary) hypertension; E78.00 Pure hypercholesterolemia, unspecified; G43.909 Migraine, unspecified, not intractable, without status migrainosus; F41.9 Anxiety disorder, unspecified; F32.A Depression, unspecified; E11.9 Type 2 diabetes mellitus without complications; M19.90 Unspecified osteoarthritis, unspecified site; Z87.442 Personal history of urinary calculi; Z88.2 Allergy status to sulfonamides; Z88.5 Allergy status to narcotic agent; Z88.8 Allergy status to other drugs, medicaments and biological substances; Z98.890 Other specified postprocedural states; Z79.899 Other long term (current) drug therapy; Z20.822 Contact with and (suspected) exposure to COVID-19; Z79.84 Long term (current) use of oral hypoglycemic drugs; Z72.89 Other problems related to lifestyle; Z56.0 Unemployment, unspecified
CPT/HCPCS: 36415; 81001; 87804; 87811; 99283